=== PATIENT | male | born 1950 | race Caucasian/White ===

== ENCOUNTER 2022-01-15 16:39 | Inpatient (IN) | payer MEDICARE, OTHER ==
[2022-01-15 17:19] LABS: Hemoglobin 14.1 g/dL (13.5-17.5); MDiff Complete? YES; Mean Corpuscular HGB CONC 32.7 g/dL (32.0-36.0); Mean Corpuscular Hemoglobin 29.3 pg (27.0-33.0); Mean Corpuscular Volume 89.6 fl (81.2-95.1); Mean Platelet Volume 11.4 fl (7.4-10.4); Platelet Count 257 10x3/uL (150-450); RBC Distribution Width 15.3 % (11.5-14.5); Red Blood Cell (RBC) Count 4.81 10x6/uL (4.32-5.72); White Blood Cell (WBC) Count 8.6 10x3/uL (3.5-10.5)
[2022-01-15 17:24] LABS: PTT 27.6 sec (22.0-33.0); Prothrombin Time 10.9 sec (9.5-12.1)
[2022-01-15 17:29] LABS: ALT (SGPT) 9 U/L (8-55); AST (SGOT) 19 U/L (5-34); Albumin 3.6 g/dL (3.4-4.8); Alkaline Phosphatase 74 U/L (40-110); Anion Gap 15 mmol/L (10-20); BUN (Urea Nitrogen) 27 mg/dL (8.4-25.7); Bilirubin, Total 0.4 mg/dL (0.2-1.2); Calc. Creatinine Clearance 0 mL/min (70-130); Calcium 9.4 mg/dL (7.8-10.44); Carbon Dioxide 29 mmol/L (23-31); Chloride 99 mmol/L (98-107); Estimated GFR 24; Glucose 74 mg/dL (83-110); Magnesium 1.8 mg/dL (1.6-2.6); Potassium 4.3 mmol/L (3.5-5.1); Protein, Total 6.6 g/dL (5.8-8.1); Sodium 139 mmol/L (136-145)
[2022-01-15 17:39] LABS: Eosinophils 3 % (0-10); Lymphocytes 33 % (21-51); Monocytes 8 % (0-10); Neutrophil 56 % (42-75); Platelet Morphology Comment Appears Adequate
[2022-01-15 17:58] LABS: SARS-CoV-2 NAA Rapid Test Not Detected (NotDetected)
[2022-01-15] MEDS ORDERED: Guaifenesin DM 100-10/5 ML UDCUP PO PRN (19:25)
[2022-01-15] MEDS ORDERED: Ondansetron PF 4 MG/2 ML Vial IVP PRN (19:25)
[2022-01-15] MEDS ORDERED: Senokot S 8.6-50 MG TAB PO PRN (19:25)
[2022-01-15] MEDS ORDERED: Sodium Chloride 0.9% 1,000 ML IV SCH (19:30)
[2022-01-15] MEDS ORDERED: Tamsulosin HCl 0.4 MG CAP ONE (21:37)
[2022-01-15] MEDS: Simvastatin 10 MG TAB PO SCH (22:34)
[2022-01-15] MEDS: Tamsulosin HCl 0.4 MG CAP PO SCH (22:34)
[2022-01-16 04:11] LABS: Anion Gap 15 mmol/L (10-20); BUN (Urea Nitrogen) 22 mg/dL (8.4-25.7); Calc. Creatinine Clearance 0 mL/min (70-130); Calcium 8.2 mg/dL (7.8-10.44); Carbon Dioxide 28 mmol/L (23-31); Chloride 103 mmol/L (98-107); Estimated GFR 32; Glucose 104 mg/dL (83-110); Potassium 3.5 mmol/L (3.5-5.1); Sodium 142 mmol/L (136-145)
[2022-01-16] MEDS ORDERED: Nitroglycerin 2% Ointment 1 INCH/1 GM Packet ONE (06:54)
[2022-01-16] MEDS ORDERED: Enoxaparin Sodium 30 MG/0.3 ML SYRINGE SC SCH (09:00)
[2022-01-16] MEDS: Calcium Carbonate 500 MG ChewTAB PO PRN ×2 (12:07→22:21)
[2022-01-16 12:35] VITALS: BMI 28.7
[2022-01-16] MEDS ORDERED: Morphine 2 MG/ML VIAL SLOW IVP PRN (14:21)
[2022-01-16] MEDS ORDERED: Fioricet 325/50/40 mg Tablet PO SCH (15:30)
[2022-01-16] MEDS ORDERED: Prochlorperazine Edisylate 10 MG, Admixture Fee 1 EACH in Sodium Chloride 0.9% 50 ML IVPB SCH (15:30)
[2022-01-16] MEDS ORDERED: Lidocaine 2% Viscous Solution 10 ML, Aluminum & Magnesium Hydroxide 30 ML SSW SCH (16:00)
[2022-01-16] MEDS: Sodium Chloride 0.9% 1,000 ML IV SCH (16:12)
[2022-01-16 17:06] LABS: Bilirubin Neg (Negative); Blood, Urine 250 (Negative); Clarity Cloudy (Clear); Glucose, Urine (Dipstick) Normal (Negative); Ketone, Urine Negative (Negative); Leukocyte 500 (Negative); Nitrite Positive (Negative); Protein, Urine (Dipstick) 100 mg/dl (Neg-Trace); Urobilinogen Normal mg/dL (Less than 2)
[2022-01-16 17:16] LABS: RBC/HPF Greater than 50 HPF (0-3); WBC/HPF Greater Than 50 HPF (0-3)
[2022-01-16 17:17] LABS: Bacteria/HPF 3+ HPF (None Seen); Squamous Epithelial None Seen HPF (0-3)
[2022-01-16 17:19] LABS: Urine Culture Reflex Yes Yes
[2022-01-16] MEDS: cefTRIAXone\\ROCEPHIN 1 GM in Sodium Chloride 0.9% 100 ML IVPB SCH (22:09)
[2022-01-16] MEDS: Tamsulosin HCl 0.4 MG CAP PO SCH (22:10)
[2022-01-16] MEDS: Simvastatin 10 MG TAB PO SCH (22:10)
[2022-01-16] MEDS: Acetaminophen 325 MG TAB PO PRN (22:22)
[2022-01-17] MEDS ORDERED: Amlodipine 5 MG TAB PO SCH (02:00)
[2022-01-17 04:47] LABS: #Basophils 0.1 10x3/uL (0.0-0.2); #Eosinphils 0.4 10x3/uL (0.0-0.5); #Monocytes 1.1 10x3/uL (0.0-1.1); #Neutrophils 4.6 10x3/uL (1.5-8.4); %Basophils 0.8 % (0.0-2.0); %Eosinophils 4.5 % (0.0-6.0); %Lymphocytes 23.6 % (18.0-47.0); %Monocytes 13.2 % (0.0-10.0); %Neutrophils 57.6 % (40.0-75.0); Hemoglobin 13.1 g/dL (13.5-17.5); Mean Corpuscular HGB CONC 32.9 g/dL (32.0-36.0); Mean Corpuscular Hemoglobin 29.1 pg (27.0-33.0); Mean Corpuscular Volume 88.4 fl (81.2-95.1); Mean Platelet Volume 11.5 fl (7.4-10.4); Platelet Count 260 10x3/uL (150-450); RBC Distribution Width 15.2 % (11.5-14.5)
[2022-01-17 04:53] LABS: Anion Gap 13 mmol/L (10-20); BUN (Urea Nitrogen) 17 mg/dL (8.4-25.7); Calc. Creatinine Clearance 56 mL/min (70-130); Calcium 8.5 mg/dL (7.8-10.44); Carbon Dioxide 25 mmol/L (23-31); Chloride 105 mmol/L (98-107); Estimated GFR 49; Glucose 104 mg/dL (83-110); Potassium 3.4 mmol/L (3.5-5.1); Sodium 140 mmol/L (136-145)
[2022-01-17] MEDS: Finasteride 5 MG TAB PO SCH ×2 (07:31→08:26)
[2022-01-17] MEDS: Multivitamin W/ Minerals 1 TAB PO SCH ×2 (07:31→08:26)
[2022-01-17] MEDS: Mycophenolate 250 MG CAP PO SCH ×2 (07:32→08:26)
[2022-01-17] MEDS: Famotidine 20 MG TAB PO SCH (08:26)
[2022-01-17] MEDS: Enoxaparin Sodium 40 MG/0.4 ML SYRINGE SC SCH (08:27)
[2022-01-17] MEDS: Sodium Chloride 0.9% 1,000 ML IV SCH (13:55)
[2022-01-17] MEDS: Tamsulosin HCl 0.4 MG CAP PO SCH (20:34)
[2022-01-17] MEDS: Calcium Carbonate 500 MG ChewTAB PO PRN (20:34)
[2022-01-17] MEDS: Simvastatin 10 MG TAB PO SCH (20:34)
[2022-01-17] MEDS: cefTRIAXone\\ROCEPHIN 1 GM in Sodium Chloride 0.9% 100 ML IVPB SCH (22:00)
[2022-01-18] MEDS ORDERED: diphenhydrAMINE 25 MG CAP PO SCH (01:15)
[2022-01-18] MEDS: Acetaminophen 325 MG TAB PO PRN (06:03)
[2022-01-18 06:16] LABS: #Basophils 0.1 10x3/uL (0.0-0.2); #Eosinphils 0.5 10x3/uL (0.0-0.5); #Neutrophils 3.9 10x3/uL (1.5-8.4); %Basophils 0.7 % (0.0-2.0); %Eosinophils 6.1 % (0.0-6.0); %Monocytes 11.9 % (0.0-10.0); %Neutrophils 46.9 % (40.0-75.0); Hemoglobin 12.8 g/dL (13.5-17.5); Mean Corpuscular HGB CONC 32.8 g/dL (32.0-36.0); Mean Corpuscular Hemoglobin 29.4 pg (27.0-33.0); Mean Corpuscular Volume 89.7 fl (81.2-95.1); Mean Platelet Volume 10.6 fl (7.4-10.4); Platelet Count 248 10x3/uL (150-450); RBC Distribution Width 15.3 % (11.5-14.5); Red Blood Cell (RBC) Count 4.35 10x6/uL (4.32-5.72); White Blood Cell (WBC) Count 8.3 10x3/uL (3.5-10.5)
[2022-01-18 06:24] LABS: Anion Gap 11 mmol/L (10-20); BUN (Urea Nitrogen) 18 mg/dL (8.4-25.7); Calc. Creatinine Clearance 55 mL/min (70-130); Calcium 8.7 mg/dL (7.8-10.44); Carbon Dioxide 28 mmol/L (23-31); Chloride 102 mmol/L (98-107); Estimated GFR 47; Glucose 106 mg/dL (83-110); Potassium 3.8 mmol/L (3.5-5.1); Sodium 137 mmol/L (136-145)
[2022-01-18] MEDS: Finasteride 5 MG TAB PO SCH (09:57)
[2022-01-18] MEDS: Enoxaparin Sodium 40 MG/0.4 ML SYRINGE SC SCH (09:57)
[2022-01-18] MEDS: Famotidine 20 MG TAB PO SCH (09:57)
[2022-01-18] MEDS: Multivitamin W/ Minerals 1 TAB PO SCH (09:57)
[2022-01-18] MEDS: Mycophenolate 250 MG CAP PO SCH (09:58)
[2022-01-18] MEDS: Sodium Chloride 0.9% 1,000 ML IV SCH (11:47)
[2022-01-18] MEDS: Mag-Al 1200 mg/1200 mg/30 ML UDCUP PO PRN ×2 (13:38→21:55)
[2022-01-18] MEDS ORDERED: Ondansetron ODT 4 MG TAB PO PRN (17:33)
[2022-01-18] MEDS ORDERED: Melatonin 3 MG TAB PO SCH (20:45)
[2022-01-18] MEDS ORDERED: Amlodipine 10 MG TAB PO SCH (21:00)
[2022-01-18] MEDS: Simvastatin 10 MG TAB PO SCH (21:50)
[2022-01-18] MEDS: Cefdinir 300 MG CAP PO SCH (21:51)
[2022-01-18] MEDS: Tamsulosin HCl 0.4 MG CAP PO SCH (21:51)
[2022-01-19] MEDS: Sodium Chloride 0.9% 1,000 ML IV SCH (02:45)
[2022-01-19 05:15] LABS: Anion Gap 12 mmol/L (10-20); BUN (Urea Nitrogen) 14 mg/dL (8.4-25.7); Calc. Creatinine Clearance 70 mL/min (70-130); Calcium 9.1 mg/dL (7.8-10.44); Carbon Dioxide 31 mmol/L (23-31); Chloride 101 mmol/L (98-107); Estimated GFR 64; Glucose 104 mg/dL (83-110); Potassium 3.3 mmol/L (3.5-5.1); Sodium 141 mmol/L (136-145)
[2022-01-19 05:18] LABS: #Basophils 0.1 10x3/uL (0.0-0.2); #Eosinphils 0.6 10x3/uL (0.0-0.5); #Monocytes 1.1 10x3/uL (0.0-1.1); #Neutrophils 4.2 10x3/uL (1.5-8.4); %Basophils 0.8 % (0.0-2.0); %Eosinophils 6.4 % (0.0-6.0); %Lymphocytes 33.1 % (18.0-47.0); %Monocytes 12.5 % (0.0-10.0); %Neutrophils 46.9 % (40.0-75.0); Hemoglobin 13.9 g/dL (13.5-17.5); Mean Corpuscular HGB CONC 33.3 g/dL (32.0-36.0); Mean Corpuscular Hemoglobin 29.3 pg (27.0-33.0); Mean Corpuscular Volume 87.8 fl (81.2-95.1); Mean Platelet Volume 11.5 fl (7.4-10.4); Platelet Count 299 10x3/uL (150-450); RBC Distribution Width 15.4 % (11.5-14.5); Red Blood Cell (RBC) Count 4.75 10x6/uL (4.32-5.72); White Blood Cell (WBC) Count 8.9 10x3/uL (3.5-10.5)
[2022-01-19] MEDS ORDERED: Potassium Chloride 20 MEQ TAB PO SCH (08:00)
[2022-01-19] MEDS: Mycophenolate 250 MG CAP PO SCH (09:12)
[2022-01-19] MEDS: Enoxaparin Sodium 40 MG/0.4 ML SYRINGE SC SCH (09:12)
[2022-01-19] MEDS: Famotidine 20 MG TAB PO SCH (09:12)
[2022-01-19] MEDS: Finasteride 5 MG TAB PO SCH (09:13)
[2022-01-19] MEDS: Multivitamin W/ Minerals 1 TAB PO SCH (09:13)
[2022-01-19] MEDS: Cefdinir 300 MG CAP PO SCH (09:13)
[2022-01-19] MEDS: Acetaminophen 325 MG TAB PO PRN (12:22)
[2022-01-19 13:25] VITALS: BP 186/95; TEMP 98.9
== END 2022-01-19 16:15 | disposition home or self-care (01) | DRG 683 ==
LOC: CSHERS 16:39 → CSHERHOLD 21:28 → CSHTELE 01-16 09:38
PROVIDERS: ADMIT Family Medicine; ATTEND Student in an Organized Health Care Education/Training Program
DX: N17.9 Acute kidney failure, unspecified (principal); E87.21 Acute metabolic acidosis; N39.0 Urinary tract infection, site not specified; E78.5 Hyperlipidemia, unspecified; I95.1 Orthostatic hypotension; G70.00 Myasthenia gravis without (acute) exacerbation; R00.1 Bradycardia, unspecified; N18.30 Chronic kidney disease, stage 3 unspecified; E11.22 Type 2 diabetes mellitus with diabetic chronic kidney disease; I12.9 Hypertensive chronic kidney disease with stage 1 through stage 4 chronic kidney disease, or unspecified chronic kidney disease; N40.0 Benign prostatic hyperplasia without lower urinary tract symptoms; G35 Multiple sclerosis; I25.10 Atherosclerotic heart disease of native coronary artery without angina pectoris; R42 Dizziness and giddiness; K21.9 Gastro-esophageal reflux disease without esophagitis; G89.29 Other chronic pain; Z88.0 Allergy status to penicillin; B96.1 Klebsiella pneumoniae [K. pneumoniae] as the cause of diseases classified elsewhere; Z20.822 Contact with and (suspected) exposure to COVID-19; Z98.890 Other specified postprocedural states; Z87.891 Personal history of nicotine dependence; Z90.5 Acquired absence of kidney; Z90.49 Acquired absence of other specified parts of digestive tract; Z85.53 Personal history of malignant neoplasm of renal pelvis; Z79.899 Other long term (current) drug therapy
CPT/HCPCS: 36415; 36416; 71045; 76770; 80048; 80053; 81001; 82550; 83605; 83735; 84443; 84484; 85025; 85610; 85730; 87077; 87086; 87186; 93005; 93306; J0696; J0780; J1650; J2270; J3490; J7050; J7517; Q0162; U0002